=== PATIENT | male | born 1990 | race Caucasian/White ===

== ENCOUNTER 2019-06-19 22:43 | Inpatient (IN) | payer OTHER, SELFPAY ==
[2019-06-19] MEDS ORDERED: Morphine 4 MG/ML VIAL ONE (23:07)
[2019-06-19 23:26] LABS: #Lymphocytes 1.5 thou/uL (1.20-3.40); #Monocytes 0.8 thou/uL (0.11-0.59); #Neutrophils 11.5 thou/uL (1.40-6.50); %Basophils 0.1 % (0.0-1.0); %Eosinophils 0.3 % (0.0-10.0); %Monocytes 5.5 % (0.0-10.0); %Neutrophils 83.2 % (42.0-75.0); Hemoglobin 14.6 g/dL (14.0-18.0); Mean Corpuscular HGB CONC 33.7 g/dL (32.0-36.0); Mean Corpuscular Hemoglobin 27.3 pg (27.0-31.0); Mean Corpuscular Volume 81.2 fL (78.0-98.0); Mean Platelet Volume 8.1 fL (7.4-10.4); Platelet Count 236 thou/uL (130-400); RBC Distribution Width 12.3 % (11.5-14.5); Red Blood Cell (RBC) Count 5.35 mill/uL (4.70-6.10); White Blood Cell (WBC) Count 13.8 thou/uL (4.8-10.8)
--- NOTE | 2019-06-19 23:39 | RAD ---
Left ankle 3 views: 06/19/2019 COMPARISON: None HISTORY: Injury, pain FINDINGS: Mild lateral soft tissue swelling suspected. There is a comminuted mildly distracted fracture of the calcaneus at the level of the plantar aponeur osis origin. There are foci of gas within the soft tissues adjacent to the calcaneus and the plantar and lateral regions suggesting open fracture. IMPRESSION: Findings suggesting an open fracture of the calcaneus as described above.
--- NOTE | 2019-06-19 23:40 | RAD ---
3 views left foot: 06/19/2019 COMPARISON: None HISTORY: Injury, trauma, pain FINDINGS: Foci of soft tissue gas are seen along the lateral aspect of the foot adjacent to the calca neus and cuboid. There is a mildly distracted mildly comminuted fracture involving the inferior cortex of the calcaneus posteriorly at the level of the origin of the plantar aponeurosis. IMPRESSION: Fracture involving the cortex along the inferior posterior calcaneus at the origin of the plantar aponeurosis. Foci of gas noted consistent with an open injury.
--- NOTE | 2019-06-19 23:46 | RAD ---
Frontal and lateral imaging of the left tibia/fibula: 06/19/2019 COMPARISON: None HISTORY: Injury, trauma, pain Findings: No acute fracture or dislocation is seen involving the left tibia or fibula. IMPRESSION: No evidence for an acute osseous abnormality of the left tibia/fibula.
[2019-06-19 23:49] LABS: Anion Gap 12 mmol/L (10-20); BUN (Urea Nitrogen) 9 mg/dL (8.9-20.6); Calc. Creatinine Clearance 0 mL/min (70-130); Calcium 9.1 mg/dL (7.8-10.44); Carbon Dioxide 25 mmol/L (22-29); Chloride 104 mmol/L (98-107); Estimated GFR-MDRD Greater than 90; Glucose 116 mg/dL (70-105); Potassium 3.6 mmol/L (3.5-5.1); Sodium 137 mmol/L (136-145)
[2019-06-19] MEDS ORDERED: Ondansetron PF 4 MG/2 ML Vial ONE (23:59)
[2019-06-20] MEDS ORDERED: hydrALAZINE 20 MG/ML VIAL SLOW IVP PRN (00:15)
[2019-06-20] MEDS ORDERED: Dextrose 50% Abboject 50 ML SYRINGE SLOW IVP PRN (00:15)
[2019-06-20] MEDS ORDERED: Morphine 2 MG/ML SYRINGE SLOW IVP PRN (00:15)
[2019-06-20] MEDS ORDERED: Dextrose 5% in Water 1,000 ML IV PRN (00:15)
[2019-06-20] MEDS ORDERED: Cyclobenzaprine 10 MG TAB PO PRN (00:19)
[2019-06-20] MEDS ORDERED: traMADol HCl 50 MG TAB PO PRN ×2 (00:19)
[2019-06-20] MEDS ORDERED: Potassium Chloride 20 MEQ TAB PO SCH (01:00)
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
[2019-06-20] MEDS: Sodium Chloride 0.9% 1,000 ML IV SCH ×3 (02:04→17:25)
[2019-06-20] MEDS: Acetaminophen 500 MG TAB PO SCH ×4 (02:04→17:29)
[2019-06-20] MEDS: CEFAZOLIN 2 GM in Premix Bag 1 BAG IVPB SCH ×3 (02:05→17:18)
[2019-06-20 02:20] VITALS: BMI 21.4
[2019-06-20] MEDS: Oxazepam 10 MG CAP PO SCH ×2 (05:45→15:12)
[2019-06-20] MEDS: Ibuprofen 600 MG TAB PO SCH ×2 (05:45→15:12)
[2019-06-20] MEDS ORDERED: Thiamine 100 MG TAB PO SCH (09:00)
[2019-06-20] MEDS ORDERED: Polyethylene Glycol 3350 17 GM Packet PO SCH (09:00)
[2019-06-20] MEDS ORDERED: Famotidine 20 MG TAB PO SCH (09:00)
[2019-06-20] MEDS ORDERED: Senokot S 8.6-50 MG TAB PO SCH (09:00)
[2019-06-20] MEDS ORDERED: Multivitamin W/ Minerals 1 TAB PO SCH (09:00)
[2019-06-20] MEDS ORDERED: Folic Acid 1 MG TAB PO SCH (09:00)
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
[2019-06-20] MEDS ORDERED: PROPOFOL 200 MG/20 ML VIAL ONE (10:32)
[2019-06-20] MEDS ORDERED: Dexamethasone 20 MG/5 ML VIAL ONE (10:32)
[2019-06-20] MEDS ORDERED: Ondansetron PF 4 MG/2 ML Vial ONE (10:32)
[2019-06-20] MEDS ORDERED: Ketorolac Tromethamine 30 MG/ML VIAL ONE (10:32)
[2019-06-20] MEDS ORDERED: Lidocaine 1% PF 5 ML VIAL ONE (10:32)
[2019-06-20 11:16] LABS: Amphetamine Not Detected (NotDetected); Barbiturates Screen Not Detected (NotDetected); Benzodiazepine Screen Detected (NotDetected); Cocaine Metabolite Screen Not Detected (NotDetected); Medtox Control Line Valid? VALID (VALID); Medtox Reader # READER 4; Methadone Not Detected (NotDetected); Methamphetamine Not Detected (NotDetected); Opiate Screen Detected (NotDetected); Oxycodone Screen Not Detected (NotDetected); Phencyclidine (PCP) Not Detected (NotDetected); THC/Cannabinoid Screen Detected (NotDetected); Tricyclic Screen Not Detected (NotDetected)
[2019-06-20] MEDS: Ondansetron PF 4 MG/2 ML Vial IVP PRN ×2 (11:20→17:19)
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
[2019-06-20] MEDS ORDERED: Neomycin-Polymyxin 1 ML AMP ONE (12:46)
[2019-06-20] MEDS ORDERED: Fentanyl 100 MCG/2 ML VIAL ONE (12:53)
[2019-06-20] MEDS ORDERED: HYDROmorphone 0.5 MG/0.5 ML SYRINGE ONE (12:53)
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
[2019-06-20] MEDS ORDERED: Gentamicin 80 MG/2 ML VIAL ONE (13:27)
[2019-06-20] MEDS ORDERED: HYDROmorphone 2 MG/ML VIAL SLOW IVP PRN (13:41)
[2019-06-20] MEDS ORDERED: PACU-Morphine 4MG/ML VIAL SLOW IVP PRN (13:41)
[2019-06-20] MEDS ORDERED: Ondansetron HCl/PF 4 MG/2 ML Vial IVP PRN (13:41)
[2019-06-20] MEDS ORDERED: Promethazine HCl 25 MG/ML VIAL IM PRN (13:41)
[2019-06-20] MEDS ORDERED: Promethazine HCl 25 MG/ML VIAL SLOW IVP PRN (13:41)
[2019-06-20 15:19] VITALS: TEMP 97.6
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
[2019-06-20 17:47] VITALS: BP 128/79
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
== END 2019-06-20 19:28 | disposition home or self-care (01) | DRG 505 ==
LOC: ERS 22:43 → SJJU 06-20 00:15
PROVIDERS: ADMIT Specialist; ATTEND Specialist
PROC: 0QSM0ZZ Reposition Left Tarsal, Open Approach (ICD-10-PCS; principal; 2019-06-20)
DX: S92.002B Unspecified fracture of left calcaneus, initial encounter for open fracture (principal); G89.11 Acute pain due to trauma; F10.10 Alcohol abuse, uncomplicated; F32.9 Major depressive disorder, single episode, unspecified; V09.9XXA Pedestrian injured in unspecified transport accident, initial encounter; Y93.89 Activity, other specified; Y92.89 Other specified places as the place of occurrence of the external cause; R40.2413 Glasgow coma scale score 13-15, at hospital admission; R11.0 Nausea
CPT/HCPCS: 28400; 36415; 80048; 80306; 80307; 85025; 96374; 96375; G0390; J0690; J1100; J1170; J1580; J1885; J2001; J2270; J2405; J2704; J3010